=== PATIENT | male | born 1960 | race Caucasian/White ===

== ENCOUNTER 2024-05-31 00:36 | Emergency (ER) | payer BC, SELFPAY ==
[2024-05-31 00:42] VITALS: BMI 26.8
[2024-05-31 00:50] VITALS: BP 123/86
--- NOTE | 2024-05-31 00:56 | ED.GENMED ---
History of Present Illness
General
Chief Complaint: Chest Pain
Source: patient
Exam Limitations: none
Time Seen by Provider: 05/31/24 00:55
Nursing documentation reviewed up to this point in time: agreed with
History of Present Illness
History of Present Illness:
64-year-old male with history of GERD presents for chest pain. States he felt some sternal CP through to back 2 evenings ago, last evening went to bed and around midnight(one hour ago) was awakened with similar but worse persistent pain. Denies
sweating, n/v, lightheadedness.
Had fever, cough fatigue, 3 weeks ago, neg Covid at that time.
Past History
Past History
ED Past Medical History: GERD
ED Past Surgical History: Appendectomy
Social History
Tobacco: Non-smoker
Alcohol: Occasional
Personal:
Living: with family
Employment: Employed
Review of Systems
Review of Systems
Allergies reviewed?: Yes
All Other Systems: ROS reviewed and negative except as documented in HPI and ROS
Constitutional: Denies fever
EENT: Denies sore throat
Respiratory: Denies trouble breathing
Cardiac: Reports chest pain; Denies diaphoresis or palpitations
ABD/GI: Denies abdominal pain, nausea, vomiting or diarrhea
: Denies dysuria
Musculoskeletal: Reports no symptoms
Skin: Reports no symptoms
Neurological: Reports no symptoms
Phy Exam
Physical Exam
Physical Exam:
GENERAL: No acute distress. A&Ox3.
CONSTITUTIONAL: Afebrile.
EYES: clear, conjunctivae normal
ENMT: moist mucus membranes, Pharynx nl
RESPIRATORY: Regular respirations, nonlabored, lungs clear.
CARDIOVASCULAR: Regular rate and rhythm, no murmurs, no rubs.
GI: Soft, nontender, normal BS
MUSCULOSKELETAL: Moves with ease. Well perfused.
SKIN: Warm, dry, pink
PSYCH: Normal mood and affect. Well kept, interactive and appropriate
NEUROLOGIC: Awake, alert and oriented. No focal neurological deficits
Scores
Heart Score for Chest Pain Patients
STEMI patient?: Not applicable
Course
Orders/Labs/Results
Orders:
Orders
05/31/24 00:38
Electrocardiogram (*1) Urgent
Reason for Study: Chest Pain
05/31/24 00:41
Electrocardiogram (*1) Urgent
Reason for Study: Other
Other Reason for Exam: Respiratory Distress
Cardiac Monitoring- Treatment ONCE
EKG- Treatment ONCE
IV Insert/Care/Rem.- Treatment PRN
CR Chest - 2 Views Urgent
Comment:
Reason For Exam: respiratory distress
O2 Therapy [RESP] Urgent
Titrate/Wean O2 to maintain O2 sat greater than (%): 93
Special Instructions: TO MAINTAIN CONTINUOUS O2 SATS >/= 93%
Pulse Ox/cont/shift [RESP] Urgent
Quantity: 1
Special Instructions: continuous pulse ox
05/31/24 00:58
Complete Blood Count/With Diff Urgent
Comprehensive Metabolic Panel Urgent
NT-proBNP Urgent
Troponin I Urgent
05/31/24 01:41
Ketorolac [Toradol] 15 mg IV NOW STA
Abnormal Lab Results
05/31/24
00:58
RBC 4.60 L 10^6/uL
(4.70-6.10)
Hct 38.5 L %
(39.0-52.0)
Abs Immat Gran (auto) 0.1 H 10^3/uL
(0-0.05)
Absolute Monos (auto) 1.2 H 10^3/uL
(0.1-0.6)
Immature Gran % 1.3 H %
(0-0.5)
Monocytes % 14.1 H %
(1.7-9.3)
Glucose 115 H mg/dl
(70-99)
05/31/24 00:58
05/31/24 00:58
Vital Signs
Initial and Last Documented VS:
Initial Vital Signs
Temp Pulse Resp BP Pulse Ox
98.3 F 66 20 123/86 98
05/31/24 00:50 05/31/24 00:50 05/31/24 00:50 05/31/24 00:50 05/31/24 00:50
Last Documented Vital Signs
Temp Pulse Resp BP Pulse Ox
98.3 F 66 20 123/86 98
05/31/24 00:50 05/31/24 00:50 05/31/24 00:50 05/31/24 00:50 05/31/24 01:24
MDM/Problems Addressed
Differential Diagnosis Includes:
ACS, Pleurisy, PNA, costochondritis
MDM/Problems Addressed:
64-year-old male with history of GERD presents for chest pain. States he felt some sternal CP through to back 2 evenings ago, last evening went to bed and around midnight(one hour ago) was awakened with similar but worse persistent pain. Denies
sweating, n/v, lightheadedness.
Had fever, cough fatigue, 3 weeks ago, neg Covid at that time.
EKG: Sinus rhythm with first-degree AV block.
CBC, CMP normal
Troponin normal
BNP normal
Chest x-ray unremarkable
Pt pain is worse with deep breaths, better with full exhalation. With URI viral illness 3 weeks ago, most likely pleuritic chest pain.
Stable for discharge.
*Critical Care Note
Total Time (30-74mins, 75-104mins- exclusive of procedures): Not Applicable
ED Attending Note
-
Portions of this chart may have been created with voice recognition software.� Occasional wrong word or��sound alike� substitutions may have occurred due to the inherent limitations of voice recognition software.
Discharge Plan
Departure
Patient Disposition: Home (Routine Discharge)
Date of Disposition: 05/31/24
Time of Disposition: 02:26
Patient with high blood pressure during this ER visit?: No
Condition: Good
Discharge Problem:
Pleuritic chest pain
Instructions: Pleuritic chest pain, Chest Pain That Is Not Caused by the Heart (DC)
Prescriptions:
No Action
omeprazole
20 mg PO DAILY
Referrals:
Aruna Storm, DO [Non-Admitting Privileges] - As needed
UNKNOWN - PT DOES,NOT KNOW [Family Provider] -
Activity Restrictions/Additional Instructions:
As we discussed, nothing worrisome in your workup here today, specifically, no sign of heart attack.
Your pain is most likely pleuritic pain from your recent viral illness.
Return here immediately for chest pain associated with Shortness of breath, lightheadedness, sweating, nausea/vomiting or feeling sicker in any way.
Ibuprofen 600 mg with food every 6 hours as needed for pain
See your doctor in 5-7 days if not much improved by then
Interventions
Interventions:
*Risk Screen - Suicide Last Done: 05/31/24 00:44
*General Assessment Last Done: 05/31/24 00:44
*Neglect/Abuse Screening Last Done: 05/31/24 00:44
ED- Fall Risk Assessment Last Done: 05/31/24 01:24
*ED COVID-19 Vaccine History Last Done: 05/31/24 01:21
ED- Cardiac Assessment Last Done: 05/31/24 01:24
Discharge Date and Time
Print Language: ALBANIAN
[2024-05-31 01:23] LABS: ALT (SGPT) 31 U/L (0-50); AST (SGOT) 34 U/L (17-59); Albumin 4.2 g/dl (3.5-5.0); Alkaline Phosphatase 54 U/L (38-126); Blood Urea Nitrogen 16 mg/dl (9-20); Calcium 9.1 mg/dl (8.4-10.2); Carbon Dioxide 27 mmol/L (22-30); Chloride 100 mmol/L (98-107); Estimated Creatinine Clearance 87 ml/min; Glucose 115 mg/dl (70-99); Potassium 3.9 mmol/L (3.5-5.1); Sodium 136 mmol/L (135-145); Total Bilirubin 0.6 mg/dl (0.2-1.3); eGFR > 60.00
[2024-05-31 01:33] LABS: NT-proBNP < 20.0 pg/ml; Troponin I < 0.012 ng/ml
[2024-05-31] MEDS: TORADOL 15 MG IV (01:47)
[2024-05-31 01:50] LABS: % Basophils 0.7 % (0-2); % Eosinophils 2.6 % (0-6); % Immature Granulocytes 1.3 % (0-0.5); % Lymphocytes 26.2 % (20.5-51.1); % Monocytes 14.1 % (1.7-9.3); % Neutrophils 55.1 % (42.2-75.2); Absolute Basophils 0.1 10^3/uL (0-0.2); Absolute Eosinophils 0.2 10^3/uL (0-0.7); Absolute Immature Granulocytes 0.1 10^3/uL (0-0.05); Absolute Lymphocytes 2.3 10^3/uL (1.2-3.4); Absolute Monocytes 1.2 10^3/uL (0.1-0.6); Absolute Neutrophils 4.8 10^3/uL (1.4-6.5); Hematocrit 38.5 % (39.0-52.0); Mean Corp Hgb Conc. 33.8 g/dL (33.0-37.0); Mean Corpuscular Hgb 28.3 pg (27.0-31.0); Mean Corpuscular Volume 83.7 fL (80.0-94.0); Nucleated Red Blood Cells % 0 % (-); Platelet Count 310 10^3/uL (130-400); Red Cell Dist. Width 13.9 % (11.5-14.5); White Blood Cell Count 8.7 10^3/uL (4.8-10.8)
[2024-05-31 02:42] VITALS: BP 102/70
== END 2024-05-31 02:47 | disposition home or self-care (01) ==
LOC: EMR 00:36
PROVIDERS: Student in an Organized Health Care Education/Training Program; EMERGENCY PHYSICIAN Emergency Medicine
DX: R07.81 Pleurodynia (principal); K21.9 Gastro-esophageal reflux disease without esophagitis
CPT/HCPCS: 99285; 96374; 71046; 80053; 83880; 84484; 85025; 93005